=== PATIENT | male | born 1975 | race Caucasian/White ===

== ENCOUNTER 2020-09-24 20:11 | Emergency (ER) | payer OTHER ==
[~2020-09-24] VITALS: Ht 193 cm; Wt 108.0 kg
[~2020-09-24 20:11] MED LIST: AGM875T PO; CEPH500C PO; HYDR-2890 PO
[2020-09-24 20:15] VITALS: BP 121/75
[2020-09-24] MEDS ORDERED: LIDOCAINE 1% INJ 20 ML 20 ML VIAL INJ ONE (20:45)
[2020-09-24] MEDS ORDERED: ONDANSETRON 4 MG (ZOFRAN) ORAL DISSOLVE TAB PO ONE (20:45)
--- NOTE | 2020-09-24 20:50 | ED Head Injury ---
General Chief Complaint: Laceration Stated Complaint: HEAD INJURY Source: patient Exam Limitations: no limitations History of Present Illness Date Seen by Provider: Sep 24, 2020 Time Seen by Provider: 20:40 Initial Comments Patient is a 45-year-old male who presents to the emergency room with scalp laceration/head injury. Patient was working in the yard and walking pretty briskly when he walked into an extension off of an RV. Patient denies any loss of consciousness, did not "see stars". States it bled pretty briskly. Once he got home he noticed that he had a little headache and some nausea. Patient denies being on blood thinner. No other acute neurological complaints such as vision changes weakness, numbness tingling. Does not feel like he needs a CAT scan at this time. Again the patient did not have a loss of consciousness. B leeding is controlled at this time. Unknown last tetanus shot. All other review of systems reviewed and negative except as stated. Occurred: this afternoon Method of Injury: direct blow Loss of Consciousness: no loss of consciousness Associated Systoms: Nausea/Vomiting Allergies and Home Medications Allergies Coded Allergies: No Known Drug Allergies (Unverified , 08/28/10) Home Medications Amoxicillin/Clavulanate K 1 Tab Tablet, 1 TAB PO BID Prescribed by: NATE PUGH on 08/28/10 0512 Cephalexin Monohydrate 500 Mg Capsule, 1 EACH PO TID Prescribed by: JODY PAREDES on 12/21/10 1550 Hydrocodone Bit/Acetaminophen 1 Each Tablet, 1 EACH PO NEEDED Prescribed by: JODY PAREDES on 12/21/10 1550 Patient Home Medication List Home Medication List Reviewed: Yes Review of Systems Review of Systems Constitutional: see HPI Eyes: No Symptoms Reported Ears, Nose, Mouth, Throat: no symptoms reported Respiratory: no symptoms reported Cardiovascular: no symptoms reported Gastrointestinal: nausea Genitourinary: no symptoms reported Musculoskeletal: no symptoms reported Skin: no symptoms reported Psychiatric/Neurological: Headache All Other Systems Reviewed Negative Unless Noted: Yes Physical Exam Vital Signs Capillary Refill : Height, Weight, BMI Height: '" Weight: lbs. oz. kg; BMI Method:Stated General Appearance: WD/WN, no apparent distress HEENT: PERRL/EOMI, normal ENT inspection Neck: non-tender, full range of motion Cardiovascular: regular rate, rhythm Respiratory: no respiratory distress, no accessory muscle use Extremities: normal range of motion, normal inspection Psychiatric: alert, oriented x 3 Crainal Nerves: normal hearing, normal speech, PERRL Coordination/Gait: normal gait Motor/Sensory: no motor deficit, no sensory deficit Skin: warm/dry, other (3-1/2 cm laceration at the top of the head. No active bleeding. Laceration is curvilinear in nature.) Procedures/Interventions Wound Location: Scalp Wound Length (cm): 3 Wound's Depth, Shape: superficial, linear Wound Explored: clean Irrigated w/ Saline (ccs): 100 Betadine Prep?: Yes Anesthesia: 1% Lidocaine Volume Anesthetic (ccs): 4 Staple Repair: Stapler 35W Number of Sutures: 4 Layer Closure?: 1 Sterile Dressing Applied?: No Progress/Results/Core Measures Results/Orders My Orders Orders - JEROME GRAY MD Lidocaine 1% Inj 20 Ml (Xylocaine 1% Inj (09/24/20 20:45) Ondansetron Oral Dissolve Tab (Zofran (09/24/20 20:45) Dipht,Pertuss(Acell),Tet Adult (Boostrix (09/24/20 21:00) Medications Given in ED Current Medications Medications Dose Ordered Sig/Laura Route Start Time Stop Time Status Last Admin Dose Admin Diphtheria/ Tetanus/Acell Pertussis 0.5 ml ONCE ONCE IM 09/24/20 21:00 09/24/20 21:01 DC 09/24/20 21:12 0.5 ML Lidocaine HCl 20 ml ONCE ONCE INJ 09/24/20 20:45 09/24/20 20:46 DC 09/24/20 20:48 20 ML Ondansetron HCl 4 mg ONCE ONCE PO 09/24/20 20:45 09/24/20 20:46 DC 09/24/20 20:48 4 MG Departure Impression Primary Impression: Laceration of scalp Qualified Codes: S01.01XA - Laceration without foreign body of scalp, initial encounter Additional Impression: Head injury Qualified Codes: S09.90XA - Unspecified injury of head, initial encounter Disposition: HOME, SELF-CARE Condition: Stable Departure-Patient Inst. Decision time for Depature: 21:23 Referrals: [facility] [place] NO,LOCAL PHYSICIAN (PCP) Primary Care Physician Patient Instructions: Laceration Repair With [facility], Minor Head Injury Add. Discharge Instructions: Take [id number] Tylenol or ibuprofen as needed for headache. I have given you a prescription for some nausea medicines, you can take these every 6-8 hours as needed for nausea. The dick will need to come out in 10 days. Please return to the emergency room for staple removal. Off work tomorrow. As long as you are improving after tomorrow you can return to work. Return to the emergency room if you have any new, concerning or emergent complaints. Work/School Note: Work Release Form Date Seen in the Emergency Department: Sep 24, 2020 Return to Work: Sep 26, 2020 JEROME GRAY MD Sep 24, 2020 20:50
[2020-09-24] MEDS ORDERED: TETANUS,DIPTH,PERTUSS P/F (BOOSTRIX) 0.5 ML VIAL IM ONE (21:00)
== END 2020-09-24 21:35 | disposition home or self-care (01) ==
LOC: EDUNIT# 20:11 → ER 20:14
DX: S01.01XA Laceration without foreign body of scalp, initial encounter (principal); S09.90XA Unspecified injury of head, initial encounter; Z23 Encounter for immunization; X50.1XXA Overexertion from prolonged static or awkward postures, initial encounter; Y93.01 Activity, walking, marching and hiking
CPT/HCPCS: 12032; 90715

== ENCOUNTER 2020-10-06 16:43 | Emergency (ER) | payer OTHER ==
[~2020-10-06] VITALS: Ht 193 cm; Wt 105.0 kg
[2020-10-06 16:49] VITALS: BP 122/72
== END 2020-10-06 16:49 | disposition home or self-care (01) ==
LOC: EDUNIT# 16:43 → ER 16:46
DX: Z48.02 Encounter for removal of sutures (principal)